=== PATIENT | female | born 1940 | race Caucasian/White ===

== ENCOUNTER → 2024-07-30 14:06 | Outpatient (REF) | payer MEDICARE, BC, SELFPAY | LOC: RCS 14:06 | PROVIDERS: ATTENDING PHYSICIAN Internal Medicine Cardiovascular Disease; FAMILY PHYSICIAN Family Medicine | DX: I25.10 Atherosclerotic heart disease of native coronary artery without angina pectoris (principal); I45.10 Unspecified right bundle-branch block; I07.1 Rheumatic tricuspid insufficiency; Z95.4 Presence of other heart-valve replacement | CPT/HCPCS: 93306 ==